=== PATIENT | female | born 1930 | race Caucasian/White ===

== ENCOUNTER 2019-07-20 16:37 | Emergency (ER) | payer MEDICARE ==
[~2019-07-20] VITALS: Ht 152.4 cm; Wt 49.9 kg
[2019-07-20 16:41] VITALS: BP_SYST 146
--- NOTE | 2019-07-20 16:45 | NUR ---
Patient triaged and placed on EMS gurney. VSS and patient appears in no acute distress at this time. Accompanied by EMS, awaiting available bed, and MD notified of need for MSE.
--- NOTE | 2019-07-20 16:55 | NUR ---
Placed in room 06 . Placed on monitoring and evaluation advisor, blood pressure machine and pulse oximeter. To gown for exam. Side rails up. Report given to Den FARFAN.
--- NOTE | 2019-07-20 17:10 | NUR ---
ER at bedside examining patient.
[2019-07-20] MEDS ORDERED: NACL 0.9% 1,000 ML IV ONE (17:16)
[2019-07-20 17:37] LABS: BASOPHILS % (AUTO) 0.3 % (0.0-2.0); HEMATOCRIT 33.4 % (36-48); HEMOGLOBIN 11.1 g/dL (12.0-16.0); LYMPHOCYTES # (AUTO) 1.4 K/uL (1.0-5.5); LYMPHOCYTES % (AUTO) 18.5 % (20.5-51.5); MEAN CORPUSCULAR HEMOGLOBIN 31 pg (27-31); MEAN CORPUSCULAR HGB CONC 33 % (32-36); MEAN CORPUSCULAR VOLUME 92 fL (79.0-98.0); MONOCYTES # (AUTO) 0.5 K/uL (0.0-1.0); MONOCYTES % (AUTO) 6.8 % (1.7-9.3); NEUTROPHILS # (AUTO) 5.6 K/uL (1.8-7.7); NEUTROPHILS % (AUTO) 74.4 % (40.0-70.0); PLATELET COUNT (AUTO) 115 K/uL (130-430); RED BLOOD CELL COUNT(AUTO) 3.62 MIL/uL (4.2-6.2); RED CELL DISTRIBUTION WIDTH 15.1 % (9.0-15.0); WHITE BLOOD COUNT (AUTO) 7.5 K/uL (4.8-10.8)
[2019-07-20 18:13] LABS: ANION GAP 6 (5-15); CALCIUM 10.1 mg/dL (8.4-11.0); CHLORIDE 104 mmol/L (98-107); CREATININE 0.72 mg/dL (0.55-1.30); GLUCOSE 104 mg/dL (70-99); POTASSIUM 4.1 mmol/L (3.5-5.1); SODIUM SERUM 139 mmol/L (136-145); UREA NITROGEN, BLOOD 34 mg/dL (8-21)
[2019-07-20 18:19] LABS: ALANINE AMINOTRANSFERASE 24 U/L (12-78); ALBUMIN 3.5 g/dL (3.4-4.8); ASPARTATE AMINOTRANSFERASE 26 U/L (10-37); TOTAL BILIRUBIN 0.8 mg/dL (0.0-1.0)
--- NOTE | 2019-07-20 18:20 | NUR ---
PT REQUESTED FEMALE RN FOR STRAIGHT CATH. JONATHAN RN ASSISTED WITH PROCEDURE AND NOTED PT HAD PROLAPSED UTERUS.
--- NOTE | 2019-07-20 18:50 | NUR ---
PT RESTING IN BED COMFORTABLY AT THIS TIME NO DISTRESS NOTED.
[2019-07-20] MEDS ORDERED: ASPIRIN 325 MG TABLET PO ONE (19:00)
[2019-07-20 19:04] LABS: CKMB RELATIVE INDEX 2.2 (0.0-2.9)
--- NOTE | 2019-07-20 19:45 | NUR ---
Pt resting comfortably. No distress
[2019-07-20 19:47] LABS: BILIRUBIN,URINE NEGATIVE (NEGATIVE); CLARITY/URINE CLEAR (CLEAR); COLOR,URINE YELLOW (YELLOW); GLUCOSE,URINE NEGATIVE (NEGATIVE); KETONES,URINE TRACE (NEGATIVE); LEUKOCYTE ESTERASE ,URINE NEGATIVE (NEGATIVE); NITRITE, URINE NEGATIVE (NEGATIVE); PH,URINE 6.5 (5.0-8.0); PROTEIN URINE NEGATIVE (NEGATIVE); UROBILINOGEN,URINE 0.2 (0.2-1.0)
--- NOTE | 2019-07-20 20:00 | NUR ---
Communicated with family on transfer and continuation of care for patient. Family was very appreciative.
[2019-07-20 20:10] LABS: BLOOD, URINE TRACE (NEGATIVE)
[2019-07-20 20:13] LABS: BACTERIA,URINE FEW /HPF (None Seen); MUCUS,URINE None Seen /LPF (None Seen); WBC,URINE 0-3 /HPF (0-3)
--- NOTE | 2019-07-20 20:45 | NUR ---
Pt resting in ED bed. No distress.
--- NOTE | 2019-07-20 21:10 | NUR ---
Patient to be transferred to [facility]. Is being transferred due to higher level of care. Receiving facility has accepting physician and available space. ER physician has signed transfer form. Patient or responsible libertarian has agreed to transfer and signed form. Patient belongings inventoried and will be sent with patient. Copy of nursing notes, lab reports, EKG, Physicians Orders and X-rays to be sent with patient. Report called to Otilio at receiving facility. Receiving physician is . [facility] ambulance service onscene for transfer
[2019-07-20 22:10] VITALS: BP_SYST 101
--- NOTE | 2019-07-20 22:10 | NUR ---
Report given to Paramedics on ALS ambulance. Pt stable, aware and accepting of transfer. Ambulance had loaded patient safely and prepared to transport without incident.
== END 2019-07-20 22:10 | disposition short-term general hospital (02) ==
LOC: SED 16:37
DX: E86.0 Dehydration (principal); R79.89 Other specified abnormal findings of blood chemistry; I13.10 Hypertensive heart and chronic kidney disease without heart failure, with stage 1 through stage 4 chronic kidney disease, or unspecified chronic kidney disease; E11.22 Type 2 diabetes mellitus with diabetic chronic kidney disease; N18.9 Chronic kidney disease, unspecified; I24.9 Acute ischemic heart disease, unspecified; E78.5 Hyperlipidemia, unspecified
CPT/HCPCS: 36415; 71045; 72220; 80053; 81000; 82550; 82553; 84484; 85025; 93005; 99285; J7030